=== PATIENT | male | born 1940 | race Caucasian/White ===

== ENCOUNTER 2018-09-26 18:42 | Emergency (ER) | payer MEDICARE ==
[~2018-09-26] VITALS: Ht 172.7 cm; Wt 72.6 kg
[2018-09-26] MEDS ORDERED: SODIUM CHLORIDE 0.9% 1000ML 1,000 ML IV STA (18:55)
[2018-09-26] MEDS ORDERED: ACETAMINOPHEN 1000 MG/100 ML IV STA (18:55)
[2018-09-26] MEDS ORDERED: ACETAMINOPHEN 1000 MG/100 ML 100 ML IV ONE (18:58)
[2018-09-26] MEDS ORDERED: SODIUM CHLORIDE 0.9% 1000ML 2,000 ML ONE (18:58)
[2018-09-26] MEDS ORDERED: CEFTRIAXONE SOD 1 GM/NS 50 ML 50 ML IV ONE ×2 (19:00→19:05)
[2018-09-26] MEDS ORDERED: AZITHROMYCIN 500MG/NS 250 ML 250 ML ONE (19:05)
[2018-09-26] MEDS ORDERED: AZITHROMYCIN 500MG/NS 250 ML 250 ML IV ONE (19:15)
[2018-09-26] MEDS ORDERED: ALBUTEROL SULF 0.083% NEB SOLN 3 ML NEB NEB STA (19:38)
[2018-09-26 19:45] LABS: BASOPHILS # (AUTO) 0.1 (0.0-0.1); BASOPHILS % 0.4 % (0.0-1.0); EOSINOPHILS # (AUTO) 0.1 (0.0-0.4); EOSINOPHILS % 0.7 % (0.0-6.0); HEMATOCRIT 35.8 % (38.2-49.6); LYMPHOCYTES # (AUTO) 0.8 (1.0-3.2); LYMPHOCYTES % 5.3 % (18.0-39.1); MEAN CORPUSCULAR HEMOGLOBIN 29.6 pg (28-32); MEAN CORPUSCULAR HGB CONC 33.5 g/dL (31-35); MEAN CORPUSCULAR VOLUME 88.2 fL (81-99); MONOCYTES # (AUTO) 1.8 (0.2-0.8); NEUTROPHILS # (AUTO) 11.9 (2.1-6.9); NEUTROPHILS % 78.8 % (38.7-80.0); PLATELET COUNT 118 x10e3/uL (140-360); RED BLOOD COUNT 4.06 x10e6/uL (4.3-5.7); RED CELL DISTRIBUTION WIDTH 13.5 % (11.7-14.4)
[2018-09-26] MEDS ORDERED: IPRATROPIUM BROMIDE 0.02% 2.5 ML NEB NEB ONE (19:45)
[2018-09-26 19:50] LABS: ABG PCO2 34 mmHg (41-51); ABG PH 7.42 (7.31-7.41); ABG PO2 99 mmHg (80-105)
[2018-09-26 19:51] LABS: ABG HCO3 22 mmol/L (23-28)
[2018-09-26 19:52] LABS: INR 1.04; PARTIAL THROMBOPLASTIN TIME 33.3 seconds (23.8-35.5); PROTHROMBIN TIME 14.1 seconds (11.9-14.5)
[2018-09-26 20:01] LABS: ALANINE AMINOTRANSFERASE 35 IU/L (0-55); ALBUMIN 2.9 g/dL (3.5-5.0); ALBUMIN/GLOBULIN RATIO 0.7 (0.8-2.0); ALKALINE PHOSPHATASE 69 IU/L (40-150); ANION GAP 13.4 mmol/L (8-16); BLOOD UREA NITROGEN 21 mg/dL (7-26); BUN/CREATININE RATIO 21 (6-25); CALCIUM 9.1 mg/dL (8.4-10.2); CARBON DIOXIDE 24 mmol/L (22-29); CHLORIDE 101 mmol/L (98-107); CREATINE KINASE 37 IU/L (30-200); CREATININE, SERUM 0.99 mg/dL (0.72-1.25); EST GLOMERULAR FILTRATION RATE > 60 ML/MIN (60-); GLUCOSE 145 mg/dL (74-118); MAGNESIUM 2.1 MG/DL (1.3-2.1); POTASSIUM 4.4 mmol/L (3.5-5.1); SODIUM 134 mmol/L (136-145)
--- NOTE | 2018-09-26 20:14 | Diagnostic Imaging Report ---
EXAM: CT Chest WITHOUT contrast 09/26/2018 6:58 PM INDICATION: Difficulty breathing. Has chest tube placed a similar extent on. COMPARISON: None TECHNIQUE: Chest was scanned utilizing a multidetector helical scanner from the lung apex through the level of the adrenal glands without administration of IV contrast. Absence of intravenous contrast decreases sensitivity for detection of lymphadenopathy and vascular pathology. Coronal and sagittal reformations were obtained. Routine protocol was performed. IV CONTRAST: None RADIATION DOSE: Total DLP: 565.76 mGy*cm Estimated effective dose: (DLP x 0.014 x size factor) mSv COMPLICATIONS: None FINDINGS: LINES/ TUBES: None. LUNGS AND AIRWAYS: Bilateral severe pulmonary emphysema with bullous changes most markedly affecting the upper lobes and left lung base. Irregular pleural parenchymal density in the left hemithorax with volume loss suggestive of scarring, with linear metallic density extending from the lateral left lower chest wall on axial image 72, into the left lung base on image 87, suggestive of surgical material. Patchy density in the lung bases suggestive of subsegmental atelectasis. PLEURA: Trace left apical pneumothorax versus a bleb on axial image 21 series 2. Adjacent and just posterior to it, there is a 1.7 cm oblong nodular density. Just posterior to this nodule, there is a 6.2 mm nodule on sagittal image 84. HEART AND MEDIASTINUM: No mediastinal, hilar or axillary lymphadenopathy. The heart is normal in size.. There is no pericardial effusion. Trace volume pneumopericardium as seen on axial image 81. The pulmonary trunk measures 3.6 cm in diameter. Multivessel coronary artery calcifications. UPPER ABDOMEN: Limited non-contrast views of the upper abdomen show no abnormality within the visualized liver, spleen, pancreas, or kidneys. The adrenal glands are normal. BONES: There are degenerative changes in the thoracic spine with multilevel Schmorl nodes.. SOFT TISSUES: Subcutaneous emphysema in the lower posterolateral left hemithorax with minimal emphysema along the anterior lateral left lower chest wall. IMPRESSION: 1. Left lateral lower left hemithorax subcutaneous emphysema and minimal pneumopericardium likely reflect prior chest tube placement as reported clinically. Questionable trace apical left pneumothorax versus bleb. 2. 1.7 cm oblong nodule in the left apex. Recommend comparison with prior examinations. 3. Bilateral severe pulmonary emphysema. 4. Extensive left hemithorax pleural parenchymal scarring with evidence of postsurgical changes gluteal volume loss, possibly related to prior decortication. Please correlate with past surgical history. Signed by: Dr. Jennifer Muir M.D. on 09/26/2018 8:11 PM
[2018-09-26 20:20] LABS: BILIRUBIN,URINE 1+ (NEGATIVE); CLARITY,URINE SL CLOUDY (CLEAR); COLOR,URINE STRAW (YELLOW); KETONES,URINE TRACE (NEGATIVE); LEUKOCYTE ESTERASE ,URINE NEGATIVE (NEGATIVE); NITRITE,URINE NEGATIVE (NEGATIVE); PROTEIN,URINE DIPSTICK TRACE (NEGATIVE); URINE UROBILINOGEN 1 mg/dL (0.2 - 1)
[2018-09-26] MEDS ORDERED: ASPIRIN 81 MG CHEW TAB PO ONE (20:28)
[2018-09-26 20:29] LABS: EOSINOPHILS % (MANUAL) 2 % (0-7); LYMPHOCYTES % (MANUAL) 4 % (19-48); METAMYELOCYTES % (MANUAL) 1 % (0-0); MONOCYTES % (MANUAL) 11 % (3.4-9.0); NEUTROPHILS % (MANUAL) 80 % (40-74); PLATELET ESTIMATE SLIGHTLY DECREASED; PLATELET MORPHOLOGY COMMENT NORMAL; RBC MORPHOLOGY COMMENT NORMAL
[2018-09-26 20:32] LABS: AMORPHOUS SEDIMENT,URINE MANY (FEW); BACTERIA,URINE MANY /HPF; EPITHELIAL CELLS,URINE FEW /LPF; MUCUS,URINE MODERATE (RARE)
--- NOTE | 2018-09-26 20:32 | NUR ---
[facility] CALLED FOR DISC
--- NOTE | 2018-09-26 20:38 | NUR ---
TRANSFER INITIATED TO [facility] DT, SPOKE TO TODD MCCRACKEN
--- NOTE | 2018-09-26 20:52 | NUR ---
PT STATES FEELS BETTER AFTER MEDICATIONS AND IVF'S. AWAKE ALERT SKIN W/D RESP MILDLY LABORED. REMOVED BIPAP TO GIVE ASPIRIN 81MG PO, SPO2 DROPPED TO 79%, REPLACED BIPAP AND SPO2 BACK UP TO 96%. FAMILY AT BEDSIDE
--- NOTE | 2018-09-26 21:30 | NUR ---
APPROVAL RECEIVED BY KUMAR RUSSO RN; PT ADMITTED TO DR. Ana Luisa KIM, GOING TO
[2018-09-26] MEDS ORDERED: SODIUM CHLORIDE 0.9% 1000ML 1,000 ML IV SCH (21:45)
== END 2018-09-26 23:15 | disposition other institution (70) ==
LOC: ER 18:57
DX: R06.09 Other forms of dyspnea (principal); R09.02 Hypoxemia; R50.9 Fever, unspecified; J44.9 Chronic obstructive pulmonary disease, unspecified; J45.909 Unspecified asthma, uncomplicated; Z87.891 Personal history of nicotine dependence
CPT/HCPCS: 36415; 36600; 71250; 80053; 81001; 82550; 82553; 82805; 83605; 83735; 84484; 85025; 85610; 85730; 87040; 87071; 87205; 93005; 94660; 99284; J0131; J0456; J0696; J7030